=== PATIENT | female | born 1950 | race Caucasian/White ===

== ENCOUNTER → 2020-01-21 | Outpatient (CLI) | payer MEDICARE, BC ==
[~2020-01-21] MED LIST: CARVEDILOL PO; HYDCHL25; HYDROCHLOROTHIAZIDE PO; LEVSOD100 PO; LISI5 PO; META800 PO; THYROID; THYROLAR PO
== END | disposition home or self-care (01) ==
LOC: PLD 14:19 → LAB SHORT 14:19
DX: B35.1 Tinea unguium (principal); L60.2 Onychogryphosis
CPT/HCPCS: 88305; 88312

== ENCOUNTER → 2021-05-31 | Outpatient (CLI) | payer MEDICARE, BC | END | disposition home or self-care (01) | LOC: PLD 07:42 → LAB SHORT 07:42 → LAB 07:42 | DX: B35.1 Tinea unguium (principal); L60.2 Onychogryphosis | CPT/HCPCS: 88305; 88312 ==

== ENCOUNTER 2022-06-28 07:07 | Day surgery (SDC) | payer MEDICARE, BC ==
[~2022-06-28] VITALS: Ht 149.9 cm; Wt 84.8 kg
[2022-06-28] MEDS ORDERED: LISI20 PO (08:02)
[2022-06-28] MEDS ORDERED: FLUT1DIS2 INH (08:31)
[2022-06-28] MEDS ORDERED: ALBU90OI INH (08:31)
--- NOTE | 2022-06-28 08:44 | NUR ---
06/28/22 [address] STEVENS; SEE ANESTHESIA RECORDS.
--- NOTE | 2022-06-28 09:49 | NUR ---
Patient up to Ambulate independently. Gait steady. Discharge instructions reviewed with patient. Patient verbalizes understanding. Copy given to patient to take home. Patient States Post-Procedure ride home has been arranged. Discharged via wheelchair to private car for ride home.
== END 2022-06-28 09:49 | disposition home or self-care (01) ==
LOC: ORSCMMR 07:07 → ORD 08:45 → ORSCMMR 09:49
PROVIDERS: Internal Medicine Gastroenterology
PROC: 0DBL8ZX Excision of Transverse Colon, Via Natural or Artificial Opening Endoscopic, Diagnostic (ICD-10-PCS; principal; 2022-06-28 08:45)
DX: Z12.11 Encounter for screening for malignant neoplasm of colon (principal); Z86.010 Personal history of colon polyps; J45.909 Unspecified asthma, uncomplicated; G47.33 Obstructive sleep apnea (adult) (pediatric); E03.9 Hypothyroidism, unspecified; E66.9 Obesity, unspecified; Z68.37 Body mass index [BMI] 37.0-37.9, adult; Z79.899 Other long term (current) drug therapy
CPT/HCPCS: 88305; J2405; J2704; J7120

== ENCOUNTER 2023-05-13 06:55 | Emergency (ER) | payer MEDICARE, BC ==
[~2023-05-13] VITALS: Ht 149.9 cm; Wt 71.7 kg
[~2023-05-13 06:55] MED LIST changes: +ALBU90OI INH; +FLUT1DIS2 INH; +LISI20 PO
[2023-05-13 07:47] VITALS: BP 139/64
[2023-05-13] MEDS ORDERED: Keflex500 MG PO (08:45)
== END 2023-05-13 08:50 | disposition home or self-care (01) ==
LOC: ER 06:55
DX: L03.116 Cellulitis of left lower limb (principal); Z91.040 Latex allergy status; Z79.899 Other long term (current) drug therapy; I10 Essential (primary) hypertension; G47.30 Sleep apnea, unspecified
CPT/HCPCS: 99283

== ENCOUNTER 2023-06-01 06:26 | Emergency (ER) | payer MEDICARE, BC ==
[~2023-06-01] VITALS: Ht 149.9 cm; Wt 88.5 kg
[~2023-06-01 06:26] MED LIST changes: +Keflex500 MG PO
[2023-06-01] MEDS ORDERED: HYDCHL25 PO (06:50)
[2023-06-01] MEDS ORDERED: FUROSEMIDE20 MG PO (06:51)
[2023-06-01] MEDS ORDERED: KLOR-CON 1010 ME1 PO (06:51)
[2023-06-01 08:20] VITALS: BP 132/21
[2023-06-01 08:27] LABS: BASOPHILS ABSOLUTE AUTO 0.04 K/mm3 (0.00-0.23); BASOPHILS PERCENT AUTO 0 % (0-2); EOSINOPHILS ABSOLUTE AUTO 0.12 K/mm3 (0.00-0.68); EOSINOPHILS PERCENT AUTO 1 % (0-6); Hematocrit 32.8 % (33.0-51.0); Hemoglobin 11.1 g/dL (11.5-16.0); IMMATURE GRAN ABSOLUTE AUTO 0.03 K/mm3 (0.00-0.10); IMMATURE GRAN PERCENT AUTO 0 % (0-1); LYMPHOCYTES ABSOLUTE AUTO 1.86 K/mm3 (0.84-5.20); LYMPHOCYTES PERCENT AUTO 19 % (21-46); MONOCYTES ABSOLUTE AUTO 1.01 K/mm3 (0.16-1.47); MONOCYTES PERCENT AUTO 10 % (4-13); Mean Corpuscular HGB 33.5 pg (26.0-34.0); Mean Corpuscular HGB Conc 33.8 g/dL (31.5-36.5); Mean Corpuscular Volume 99 fL (80-100); Mean Platelet Volume 9.6 fL (9.1-12.4); NEUTROPHILS ABSOLUTE AUTO 6.85 K/mm3 (1.96-9.15); NEUTROPHILS PERCENT AUTO 69 % (41-73); Platelet Count 243 K/mm3 (150-400); RDW Coefficient Variation 13.3 % (11.7-14.2); RDW Standard Deviation 48.1 fL (35.1-46.3); Red Blood Cell Count 3.31 M/mm3 (3.80-5.20); White Blood Cell Count 9.91 K/mm3 (4.00-11.30)
[2023-06-01] MEDS ORDERED: CLIN150 PO ×2 (08:33→08:56)
[2023-06-01 08:37] LABS: Albumin, Blood 3.3 g/dL (3.4-5.0); Albumin/Globulin Ratio 0.9 (0.8-1.8); Bilirubin, Total 0.5 mg/dL (0.1-1.0); Bun/Creatinine Ratio 24.9 (12.0-20.0); Creatinine, Blood 0.84 mg/dL (0.40-1.00); Globulin, Blood 3.6 g/dL (2.2-4.0); Potassium, Blood 3.3 mmol/L (3.5-5.5); Total Protein, Blood 6.9 g/dL (6.4-8.2)
== END 2023-06-01 09:07 | disposition home or self-care (01) ==
LOC: ER 06:26
PROVIDERS: Student in an Organized Health Care Education/Training Program
DX: L03.116 Cellulitis of left lower limb (principal); I10 Essential (primary) hypertension; G47.30 Sleep apnea, unspecified; Z79.899 Other long term (current) drug therapy; Z91.040 Latex allergy status
CPT/HCPCS: 80053; 85025; 93971; 99284-25

== ENCOUNTER → 2024-07-01 | Outpatient (CLI) | payer MEDICARE, BC ==
[~2024-07-01] MED LIST changes: +ASMANEX HFA13 G4 IH; +CLIN150 PO; +FUROSEMIDE20 MG PO; +HYDCHL25 PO; +KLOR-CON 1010 ME1 PO; +SYNTHROID100 M14 PO
[2024-07-01 18:04] LABS: BASOPHILS ABSOLUTE AUTO 0.03 K/mm3 (0.00-0.23); BASOPHILS PERCENT AUTO 0 % (0-2); EOSINOPHILS ABSOLUTE AUTO 0.18 K/mm3 (0.00-0.68); EOSINOPHILS PERCENT AUTO 2 % (0-6); Hematocrit 37.7 % (33.0-51.0); Hemoglobin 12.6 g/dL (11.5-16.0); IMMATURE GRAN ABSOLUTE AUTO 0.02 K/mm3 (0.00-0.10); IMMATURE GRAN PERCENT AUTO 0 % (0-1); LYMPHOCYTES ABSOLUTE AUTO 2.24 K/mm3 (0.84-5.20); LYMPHOCYTES PERCENT AUTO 29 % (21-46); MONOCYTES ABSOLUTE AUTO 0.68 K/mm3 (0.16-1.47); MONOCYTES PERCENT AUTO 9 % (4-13); Mean Corpuscular HGB 33.1 pg (26.0-34.0); Mean Corpuscular HGB Conc 33.4 g/dL (31.5-36.5); Mean Corpuscular Volume 99 fL (80-100); Mean Platelet Volume 9.1 fL (9.1-12.4); NEUTROPHILS ABSOLUTE AUTO 4.63 K/mm3 (1.96-9.15); NEUTROPHILS PERCENT AUTO 60 % (41-73); Platelet Count 277 K/mm3 (150-400); RDW Coefficient Variation 13.4 % (11.7-14.2); RDW Standard Deviation 48.4 fL (35.1-46.3); Red Blood Cell Count 3.81 M/mm3 (3.80-5.20); White Blood Cell Count 7.78 K/mm3 (4.00-11.30)
[2024-07-01 18:15] LABS: Albumin/Globulin Ratio 1.2 (0.8-1.8); Bilirubin, Total 0.3 mg/dL (0.1-1.0); Bun/Creatinine Ratio 18.5 (12.0-20.0); Calcium, Blood 9.3 mg/dL (8.5-10.1); Creatinine, Blood 0.81 mg/dL (0.40-1.00); Globulin, Blood 3.4 g/dL (2.2-4.0); Potassium, Blood 3.6 mmol/L (3.5-5.5); Total Protein, Blood 7.4 g/dL (6.4-8.2)
== END ==
LOC: LAB SHORT 17:59 → LAB 17:59
PROVIDERS: Physician Assistant
DX: R07.9 Chest pain, unspecified (principal)
CPT/HCPCS: 80053; 84484; 85025

== ENCOUNTER → 2024-07-10 | Outpatient (CLI) | payer MEDICARE, BC ==
[2024-07-14 02:06] LABS: CREATININE,URINE - PER 24H 1494 mg/d (500-1400); CREATININE,URINE - PER VOLUME 83 mg/dL; HOURS COLLECTED 24 hr; METANEPHRINE,UR - RATIO TO CRT 45 ug/g CRT (0-300); METANEPHRINE,URINE - PER 24H 67 ug/d (36-229); METANEPHRINE,URN - PER VOLUME 37 ug/L; NORMETANEPHRINE,U - PER VOLUME 250 ug/L; NORMETANEPHRINE,URN - PER 24H 450 ug/d (95-650); NORMETANEPHRINE,URN/CRT RATIO 301 ug/g CRT (0-400); TOTAL VOLUME 1800 mL
== END | disposition home or self-care (01) ==
LOC: LAB SHORT 10:00 → LAB 10:00 → LAB FUT 07-07 09:30
PROVIDERS: Student in an Organized Health Care Education/Training Program
DX: I10 Essential (primary) hypertension (principal)
CPT/HCPCS: 81050; 83835

== ENCOUNTER 2025-03-09 12:52 | Day surgery (SDC) | payer MEDICARE, BC ==
[~2025-03-09] VITALS: Ht 149.9 cm; Wt 85.7 kg
[~2025-03-09 12:52] MED LIST changes: +Balanced Salt Epinephrine Irrigation Solution 500 mL IR SCH; +Moxifloxacin HCL 0.5 MG/0.1 ML 0.4MLSYR RIGHTEYE SCH; +Ondansetron 4 MG SoluTab MM PRN; +PHENYLEPHRINE\\TROPICAMIDE\\TETRACAINE OPHTHALMIC DILATING SOLN RIGHTEYE PRN; +Povidone-Iodine 450 DROP/30 ML Solution ONE; +Povidone-Iodine 450 DROP/30 ML Solution RIGHTEYE SCH; +Tetracaine HCl/Pf 0.5% Opth Soln 4 ml ONE
--- NOTE | 2025-03-09 13:27 | NUR ---
03/09/25 8533 Shivnai Kelley PT REPORTED ANXIETY LEVEL 5/10 PRIOR TO ADMINISTRATION OF VALIUM 10MG PO @ [phone]
[2025-03-09] MEDS ORDERED: MELO7.5 PO (13:28)
[2025-03-09] MEDS ORDERED: POTA20PAC (13:30)
[2025-03-09] MEDS ORDERED: AMLODIPINE BESYL5 MG PO (13:30)
[2025-03-09] MEDS ORDERED: ZANAFLEX4 M8 (13:31)
[2025-03-09] MEDS ORDERED: MELA3 PO (13:32)
--- NOTE | 2025-03-09 13:55 | NUR ---
03/09/25 1355 Lizzy Marte VITALS AT 1355 BP: 146/85 P: 79 O2: 95% WITH 10 LITERS OF BLOW BY OXYGEN
[2025-03-09 14:26] VITALS: BP 155/80
== END 2025-03-09 14:43 | disposition home or self-care (01) ==
LOC: ORSCSDS 12:52
PROVIDERS: Student in an Organized Health Care Education/Training Program
PROC: 08RJ3JZ Replacement of Right Lens with Synthetic Substitute, Percutaneous Approach (ICD-10-PCS; principal; 2025-03-09 14:30)
DX: H25.813 Combined forms of age-related cataract, bilateral (principal); J45.909 Unspecified asthma, uncomplicated; I10 Essential (primary) hypertension; E07.9 Disorder of thyroid, unspecified; Z79.899 Other long term (current) drug therapy
CPT/HCPCS: A9270; V2632